=== PATIENT | female | born 1985 | race Caucasian/White ===

== ENCOUNTER 2023-09-02 08:08 | Outpatient (RCR) | payer OTHER, SELFPAY | END 2023-09-02 23:59 | disposition home or self-care (01) | LOC: RPT 08:08 | PROVIDERS: ATTENDING PHYSICIAN Surgery Plastic and Reconstructive Surgery; FAMILY PHYSICIAN Family Medicine | DX: R60.0 Localized edema (principal); Z98.890 Other specified postprocedural states | CPT/HCPCS: 97140; 97161; 97535 ==

== ENCOUNTER 2023-10-07 17:05 | Outpatient (RCR) | payer OTHER, SELFPAY | END 2023-10-07 23:59 | disposition home or self-care (01) | LOC: RPT 17:05 | PROVIDERS: ATTENDING PHYSICIAN Surgery Plastic and Reconstructive Surgery; FAMILY PHYSICIAN Family Medicine | DX: R60.0 Localized edema (principal); Z73.6 Limitation of activities due to disability; N64.4 Mastodynia; R20.0 Anesthesia of skin; Z98.890 Other specified postprocedural states | CPT/HCPCS: 97140; 97535 ==

== ENCOUNTER 2023-10-29 18:14 | Outpatient (RCR) | payer OTHER, SELFPAY | END 2023-10-29 23:59 | disposition home or self-care (01) | LOC: RPT 18:14 | PROVIDERS: ATTENDING PHYSICIAN Surgery Plastic and Reconstructive Surgery; FAMILY PHYSICIAN Family Medicine | DX: R60.0 Localized edema (principal); Z73.6 Limitation of activities due to disability; Z98.890 Other specified postprocedural states | CPT/HCPCS: 97140 ==

== ENCOUNTER 2024-10-22 14:13 | Emergency (ER) | payer OTHER, SELFPAY ==
[2024-10-22 14:17] VITALS: BP 150/106
[2024-10-22] MEDS: ZOFRAN ODT (ORALLY DISINTEGRATING) 4 MG PO (14:25)
[2024-10-22 15:01] LABS: % Basophils 0.1 % (0-2); % Immature Granulocytes 0.2 % (0-0.5); % Lymphocytes 6.2 % (20.5-51.1); % Neutrophils 89.5 % (42.2-75.2); Absolute Eosinophils 0.2 10^3/uL (0-0.7); Absolute Lymphocytes 0.6 10^3/uL (1.2-3.4); Absolute Monocytes 0.2 10^3/uL (0.1-0.6); Hematocrit 46.6 % (37.0-47.0); Hemoglobin 16.1 g/dL (12.0-16.0); Mean Corp Hgb Conc. 34.5 g/dL (33.0-37.0); Mean Corpuscular Volume 83.8 fL (81.0-99.0); Mean Platelet Volume 9.4 fL (7.4-10.4); Nucleated Red Blood Cells % 0 %; Platelet Count 205 10^3/uL (130-400); Red Blood Cell Count 5.56 10^6/uL (4.20-5.40); White Blood Cell Count 8.9 10^3/uL (4.8-10.8)
[2024-10-22 15:13] LABS: Urine Albumin 2+ (Neg - Trace); Urine Bilirubin Negative (Negative); Urine Character Clear (Clear); Urine Color Yellow; Urine Glucose Negative (Negative); Urine Ketone 1+ (Negative); Urine Leukocyte Negative (Negative); Urine Nitrite Negative (Negative); Urine Occult Blood Negative (Negative); Urine Urobilinogen Negative (Neg - 1+)
[2024-10-22 15:13] LABS: HCG, Serum Qualitative Screen Negative
[2024-10-22 15:16] LABS: ALT (SGPT) 26 U/L (0-35); AST (SGOT) 31 U/L (14-36); Albumin 4.9 g/dl (3.5-5.0); Alkaline Phosphatase 79 U/L (38-126); Blood Urea Nitrogen 15 mg/dl (7-17); Carbon Dioxide 23 mmol/L (22-30); Chloride 99 mmol/L (98-107); Glucose 134 mg/dl (70-99); Lipase 80 U/L (23-300); Potassium 4.7 mmol/L (3.5-5.1); Sodium 136 mmol/L (135-145); Total Bilirubin 1.7 mg/dl (0.2-1.3); Total Protein 7.8 g/dl (6.3-8.2); eGFR > 60.00
[2024-10-22 15:23] LABS: B-Hydroxybutyrate 1.05 mmol/L (0.02-0.27)
[2024-10-22 15:43] LABS: Urine Red Blood Cell 0-2 /HPF (0-2)
--- NOTE | 2024-10-22 16:52 | ED.GENMED ---
History of Present Illness
General
Chief Complaint: Abdominal Symptoms
Source: patient
Exam Limitations: none
Time Seen by Provider: 10/22/24 16:26
Nursing documentation reviewed up to this point in time: agreed with
History of Present Illness
History of Present Illness:
Patient is a 39-year-old female who is a type 1 insulin-dependent diabetic presents with nausea and vomiting since 8 AM this morning. Has not been able to tolerate any fluids. She complains of a lot of abdominal cramping., Denies diarrhea.
Her sugars have been as low as in the 70s. She does have a insulin pump. Her sugars presently 165. She does complain of chills . She feels like she has a fever. 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
and influenza A.
Review of Systems
Review of Systems
Allergies reviewed?: Yes
All Other Systems: ROS reviewed and negative except as documented in HPI and ROS
Constitutional: Reports fever (subjective fevers) and chills
EENT: Reports no symptoms
Respiratory: Reports no symptoms
Cardiac: Reports no symptoms
ABD/GI: Reports abdominal pain (abdominal cramping ), nausea and vomiting; Denies diarrhea or constipated
: Reports no symptoms
Musculoskeletal: Reports no symptoms
Skin: Reports no symptoms
Neurological: Reports no symptoms
Psychiatric: Reports no symptoms
Phy Exam
General Physical Exam
General Presentation: no apparent distress
General age: appears stated age
General Skin: warm and dry
General Habitus: normal
General Mental: alert
General Hydration: appears well hydrated
Gastrointestinal Exam
Gastrointestinal Exam: non tender and soft
Neurological Exam
Neurological Exam: alert and oriented x3
Musculoskeletal Exam
Musculoskeletal Exam: full ROM
Skin Exam
Skin Exam: normal color and warm/dry
Psychiatric Exam
Psychiatric Exam: normal mood/affect
Course
Orders/Labs/Results
Orders:
Orders
10/22/24 14:21
Test Result ONCE
10/22/24 14:24
Ondansetron Orally Disint [Zofran Odt (Orally Disintegrating)] 4 mg PO NOW STA
10/22/24 14:32
B-Hydroxybutyrate Urgent
Complete Blood Count/With Diff Urgent
Comprehensive Metabolic Panel Urgent
HCG, Serum Qualitative Screen Urgent
Lipase Urgent
10/22/24 14:38
Urinalysis Urgent
Date Specimen was Collected: 10/22/24
Time Specimen was Collected: 14:21
Urine Microscopic Urgent
Date Specimen was Collected: 10/22/24
Time Specimen was Collected: 14:21
10/22/24 17:00
0.9% Sodium Chloride 1000 ml [Nss] 1,000 ml IV BOLUS
Dicyclomine [Bentyl] 20 mg PO NOW STA
10/22/24 17:44
COVID-19 Antigen Urgent
Source: Nasal Swab
Influenza A+B Rapid Molecular Urgent
MICKEY Source: Nasal Swab
Specimen Description:
10/22/24 18:54
Ondansetron Injectable [Zofran] 4 mg IV NOW STA
10/22/24 18:55
Ondansetron Injectable [Zofran] 4 mg .ROUTE .[facility]
Abnormal Lab Results
10/22/24 10/22/24
14:32 14:38
RBC 5.56 H 10^6/uL
(4.20-5.40)
Hgb 16.1 H g/dL
(12.0-16.0)
Absolute Neuts (auto) 8.0 H 10^3/uL
(1.4-6.5)
Absolute Lymphs (auto) 0.6 L 10^3/uL
(1.2-3.4)
Neutrophils % 89.5 H %
(42.2-75.2)
Lymphocytes % 6.2 L %
(20.5-51.1)
Glucose 134 H mg/dl
(70-99)
Total Bilirubin 1.7 H mg/dl
(0.2-1.3)
Urine Ketones 1+ A
(Negative)
Urine Albumin 2+ A
(Neg - Trace)
B-Hydroxybutyrate 1.05 H mmol/L
(0.02-0.27)
10/22/24 14:32
10/22/24 14:32
Vital Signs
Initial and Last Documented VS:
Initial Vital Signs
Temp Pulse Resp BP Pulse Ox
98.3 F 121 20 150/106 100
10/22/24 14:17 10/22/24 14:17 10/22/24 14:17 10/22/24 14:17 10/22/24 14:17
Last Documented Vital Signs
Temp Pulse Resp BP Pulse Ox
98.3 F 101 20 142/83 100
10/22/24 14:17 10/22/24 17:24 10/22/24 14:17 10/22/24 18:00 10/22/24 19:00
Bonding Molder consulted with Physician
Bonding Molder consulted with physician?: Yes
Name of Physician Consulted: Marta
MDM/Problems Addressed
Differential Diagnosis Includes:
Not limited to COVID, influenza, norovirus, viral syndrome, dehydration, DKA
MDM/Problems Addressed:
Patient is a type I diabetic presenting with vomiting. Patient presents awake alert no acute distress she was given fluids Zofran and Bentyl feeling better. Patient is not acidotic her gap is 14.
she is tolerating oral fluids she is tolerating crackers. She is now starting to have diarrhea but did not give a stool specimen. Likely viral syndrome. However she is well enough to go home. She has insulin pump and is closely monitoring her
sugar and insulin. Her sugars have been stable here in the ER she is monitoring on her pump. Her bilirubin is 1.7 she does have Gilbert's disease.
She feels she feels well to go home. She does request Compazine instead of Zofran we will send this along with Aminata to pharmacy. Case discussed with the physician.
Chronic conditions affecting care:
IDDM
*Critical Care Note
Total Time (30-74mins, 75-104mins- exclusive of procedures): Not Applicable
ED Attending Note
-
Portions of this chart may have been created with voice recognition software.� Occasional wrong word or��sound alike� substitutions may have occurred due to the inherent limitations of voice recognition software.
Discharge Plan
Departure
Patient Disposition: Home (Routine Discharge)
Date of Disposition: 10/22/24
Time of Disposition: 19:35
Patient with high blood pressure during this ER visit?: Yes
Condition: Fair
Covid-19: Negative COVID-19
Discharge Problem:
Nausea, vomiting and diarrhea
Instructions: Diarrhea in teens and adults, Clear Liquid Diet, Nausea and Vomiting, Adult (DC)
Prescriptions:
New
prochlorperazine maleate [Compazine] 10 mg tablet
10 mg PO Q8H PRN (Reason: nausea and vomiting) Qty: 12 0RF
dicyclomine 20 mg tablet
20 mg PO QID PRN (Reason: cramping) Qty: 14 0RF
No Action
venlafaxine 75 mg Capsule,Extended Release 24hr
75 mg PO DAILY
atorvastatin 10 mg Tablet
10 mg PO HS
levonorgestrel-ethinyl estrad [Sronyx] 0.1-20 mg-mcg Tablet
1 tab PO DAILY
clonazepam 0.5 mg Tablet
0.5 mg PO HS
insulin aspart U-100 100 unit/mL Solution
0 unit SC Q1H
Patient Comments:
VARYING BASAL RATE
insulin aspart U-100 100 unit/mL Solution
1 sliding scale dose SC DIRECTED
Patient Comments:
SLIDING SCALE WITH MEALS
levothyroxine [Synthroid] 50 mcg Tablet
50 mcg PO DAILY
fenofibrate nanocrystallized 48 mg Tablet
48 mg PO HS
Referrals:
Marquis Morales DO [Family Provider] -
Activity Restrictions/Additional Instructions:
As discussed clear liquids for the next 24 hours followed by bland solid foods as tolerated.
A prescription for Compazine was sent to your pharmacy for nausea and vomiting as well as Bentyl for abdominal cramping. Closely monitor your sugars. Follow-up with your family doctor in the next several days.
Return if any worsening of symptoms.
Interventions
Interventions:
*Risk Screen - Suicide Last Done: 10/22/24 17:22
*General Assessment Last Done: 10/22/24 17:23
*Neglect/Abuse Screening Last Done: 10/22/24 17:22
ED- Fall Risk Assessment Last Done: 10/22/24 17:23
*ED COVID-19 Vaccine History Last Done: 10/22/24 17:22
Discharge Date and Time
Print Language: ARGENTINE
[2024-10-22] MEDS: NSS 1000 IV (17:21)
[2024-10-22] MEDS: BENTYL 20 MG PO (17:22)
[2024-10-22 17:24] VITALS: BP 156/90; BMI 22.5
[2024-10-22 18:00] VITALS: BP 142/83
[2024-10-22 18:43] LABS: COVID-19 Antigen Negative (Negative)
[2024-10-22] MEDS: ZOFRAN 4 MG IV (18:56)
[2024-10-22 19:00] VITALS: BP 152/85
[2024-10-22] MEDS: COMPAZINE 10 MG PO (19:45)
== END 2024-10-22 19:59 | disposition home or self-care (01) ==
LOC: EMR 14:13
PROVIDERS: Nurse Practitioner; EMERGENCY PHYSICIAN Emergency Medicine; FAMILY PHYSICIAN Family Medicine
DX: R11.2 Nausea with vomiting, unspecified (principal); R19.7 Diarrhea, unspecified; E10.9 Type 1 diabetes mellitus without complications; Z79.4 Long term (current) use of insulin
CPT/HCPCS: 96374; 96361; 99284; 80053; 81003; 81015; 82010; 83690; 84703; 85025; 87502; 87811

== ENCOUNTER → 2025-08-23 08:45 | Outpatient (REF) | payer OTHER, SELFPAY | LOC: WDC 08:45 | PROVIDERS: ATTENDING PHYSICIAN Obstetrics & Gynecology | DX: R92.8 Other abnormal and inconclusive findings on diagnostic imaging of breast (principal) | CPT/HCPCS: 76642; 77061; 77065 ==